=== PATIENT | male | born 1945 | race Caucasian/White ===

== ENCOUNTER → 2017-04-07 | Outpatient (CLI) | payer OTHER ==
[2016-05-03 14:49] VITALS: BP 133/72
== END ==
LOC: LAB 13:18
PROVIDERS: ATTEND Internal Medicine Gastroenterology
DX: K64.0 First degree hemorrhoids (principal)
CPT/HCPCS: 82270

== ENCOUNTER 2017-09-10 13:08 | Emergency (ER) | payer OTHER ==
[2017-09-10 13:27] VITALS: BP 115/57; BMI 22.1
--- NOTE | 2017-09-10 13:36 | DR.GENAD ---
HPI - PCP Primary Care Physician: GLORIA - Complaint/Symptoms Chief Complaint Doctors Comments: Patient presents with complaint of left shoulder pain. The shoulder problems has been ongoing for years, he usually gets Injection by his primary care physician but not recently. He was recently treated for sinusitis. He has had ongoing blurred vision. Visual acuity of 20/ 70 OD and 20/30 OS. Chief Complaint:: PT C/O DIZZINESS, WEAKNESS, AND BLURRED VISION. PT STATES HE NOTICED THIS ALL GOING ON AROUND 1130 TODAY. PT STATES HE HAS BEEN TREATED FOR SINUSITIS PER PCP. PT ALSO C/O LT SHOULDER PAIN. - Source History Provided: Patient - Mode of Arrival Mode of Arrival: Ambulatory - Timing Onset of Chief Complaint: 09/10/17 PMH - PMH Past Medical History: Yes Past Medical History: Dyslipidemia, Hypertension Past Medical History Comment: (AAA) Past Surgical History: Yes Surgical History: Ortho Surgery - Family History History of Family Medical Conditions: Yes Family Medical History: Hypertension - Social History Does patient currently use any type of tobacco product: Yes Type of Tobacco Use: Cigarettes Does any household member use tobacco: Yes Alcohol Use: Rarely Do you use any recreational Drugs:: No Lives With: Family Lives Where: Home - infectious screening In the last 2 months have you had wt loss of >10#?: NO Have you had fever, night sweats or hemotysis?: No Have you traveled outside the country in the last 6 months?: No Isolation: Standard ROS - Review of Systems Eyes: No Symptoms Reported ENTM: No Symptoms Reported Respiratoy: No Symptoms Reported Cardiovascular: No Symptoms Reported Gastrointestinal/Abdominal: No Symptoms Reported Genitourinary: No Symptoms Reported Neurological: No Symptoms Reported Musculoskeletal: Shoulder (pain with movement left) Integumentary: No Symptoms Reported Hematologic/Lymphatic: No Symptoms Reported Endocrine: No Symptoms Reported Psychiatric: No Symptoms Reported All Other Systems: Reviewed and Negative PE - Vital Signs Vitals: Temperature 98.3 F Pulse Rate 81 Respiratory Rate 20 Blood Pressure 115/57 O2 Sat by Pulse Oximetry 94 - General Limitations: No Limitations General Appearance: Alert, In No Apparent Distress - Head Head Exam: Normal Inspection, Atraumatic - Eyes Eye exam: Normal Appearance, PERRL, EOMI - ENT ENT Exam: Normal Exam External Ear Exam: Normal External Inspection TM/Canal Exam: Bilateral Normal Nose Exam: Normal Nose Exam Mouth Exam: Normal Inspection Throat Exam: Normal Inspection - Neck Neck Exam: Normal Inspection - Chest Chest Inspection: Normal Inspection - Respiratory Respiratory Exam: Normal Lung Sounds Bilat Respiratory Exam: Bilateral Clear to Auscultation - Cardiovascular Cardiovascular Exam: Regular Rate, Normal Rhythm - Abdominal Exam Abdominal Exam: Normal Inspection, Normal Bowel Sounds Abdominal Tenderness: negative: RUQ, RLQ, LUQ, LLQ, Epigastrium, Suprapubic, Diffuse, Mild, Moderate, Severe, Other - Extremities Extremities Exam: Normal Inspection, Full ROM - Back Back Exam: Normal Inspection - Neurologic Neurological Exam: Alert, Oriented X3, CN II-XII Intact - Psychiatric Psychiatric Exam: Normal Affect - Skin Skin Exam: Warm, Dry, Intact ROR - XRAY XRAY Interpreted by: Radiologist (X Ray Left Shoulder: Minor osteoarthritic changes are noted at the acromioclavicular joint. A small 1.1cm calcificic density is seen at the inferior aspect of the acromicoclavicular joint. worrisome for a loose intra-articular body. No arthropathy is noted at the glenohumeral joint. Degenerative changes are noted in the visualized portion of the spine. CT Brain: comparison with 05/08/13: The frontal sinuses are clear. Very minimal mucosal thickening is noted in a couple of the ethmoid air cells. The maxillary sinuses are clear except for very minimal mucosal thickening in the roof of right maxillary sinus. The sphenoid sinus shows minimal mucosal thickening in the floor. The mastoid air cells are clear. The IACs are symmetric. There appears to most likely be a small amount of cerumen bilaterally. Moderate vascular calcification is noted in the right side of the carotid siphon with minimal on the left. The pituitary fossa is intact. The nasal septus mildly deviates to the right. No significant nasal spurring is noted. The right middle nasal turbinate is small. There is paradoxical delete curvature of the right middle nasal turbinate.) - Diagnosis Discharge Problem: visual acuity abnormality Osteoarthritis of left shoulder Qualifiers: Osteoarthritis type: unspecified Qualified Code(s): M19.012 - Primary osteoarthritis, left shoulder - Discharge Plan Condition: Stable - Follow ups/Referrals Follow ups/Referrals: Sherman Hanson [Primary Care Provider] - 3 days - Instructions
--- NOTE | 2017-09-10 13:58 | RAD ---
Examination: X-rays of the left shoulder. Clinical history: Left shoulder pain. Technique: Three views of the left shoulder were obtained. Comparison: None available. Findings: No acute fracture, dislocation, or destructive bony lesion is noted. Minor osteoarthritic changes are noted at the acromioclavicular joint. A small 1.1 cm calcific densit y is seen at the inferior aspect of the acromioclavicular joint, worrisome for a loose intra-articula r body. No arthropathy is noted at the glenohumeral joint. Degenerative changes are noted in the visualized p ortion of the spine. No soft tissue abnormality is noted. Impression: 1. No acute fracture or dislocation. 2. Arthropathy, as described above. 3. A small 1.1 cm calcific density is seen at the inferior aspect of the acromioclavicular joint, wor risome for a loose intra-articular body. Reported By:
--- NOTE | 2017-09-10 14:06 | CT ---
HISTORY: Dizziness, weakness and blurred vision. History of being treated for sinusitis Study: Computed tomography of the sinuses: Multiple axial images were obtained through the paranasa l sinuses with subsequent reformatting in the sagittal and coronal planes. Intravascular contrast wa s not administered. Radiation dose reduction techniques utilized. Comparison: CT scan of the brain 05/08/2013 Findings: The frontal sinuses are clear. Very minimal mucosal thickening is noted in a couple of the ethmoid a ir cells. The maxillary sinuses are clear except for very minimal mucosal thickening in the roof of right maxillary sinus.. The sphenoid sinus shows minimal mucosal thickening in the floor. The masto id air cells are clear. The IAC's are symmetric. There appears to most likely be a small amount of cerumen bilaterally. Moderate vascular calcification is noted in the right side of the carotid sipho n with minimal on the left. The pituitary fossa is intact. The nasal septum mildly deviates to the right. No significant nasal spurring is noted. The right mi ddle nasal turbinate is small. There is paradoxical delete curvature of the right middle nasal turbi dago. The ostiomeatal units are patent. The visualized intracranial structures are normal. The orbits as visualized are normal with findings suggesting previous cataract surgery. IMPRESSION: 1. Minimal sinus disease as described above. 2. No acute abnormalities are identified. Reported By:
[2017-09-10] MEDS ORDERED: DECADRON INJ IM ONE (14:26)
[2017-09-10] MEDS ORDERED: DECADRON INJ ONE (14:29)
== END 2017-09-10 14:58 | disposition home or self-care (01) ==
LOC: ER 13:21
DX: H53.8 Other visual disturbances (principal); M19.012 Primary osteoarthritis, left shoulder; M12.9 Arthropathy, unspecified
CPT/HCPCS: 70486; 73030; 96372; 99282; J1100